=== PATIENT | male | born 1960 | race African-American/Black ===

== ENCOUNTER 2022-04-07 06:10 | Emergency (ER) | payer SELFPAY ==
[~2022-04-07] VITALS: Ht 175.3 cm; Wt 73.0 kg
[2022-04-07 08:19] LABS: BASOPHILS % 0.9 % (0.0-2.0); EOSINOPHILS % 5.6 % (0.0-5.0); HEMATOCRIT. 40.7 % (42.0-52.0); HEMOGLOBIN. 13.6 g/dL (14.0-18.0); LYMPHOCYTES % 25.5 % (20.0-50.0); MEAN CORPUSCULAR HEMOGLOBIN 31.3 pg (28.0-32.0); MEAN CORPUSCULAR VOLUME 93.9 fL (80.0-94.0); MEAN PLATELET VOLUME 8.7 fl (7.4-10.4); MONOCYTES % 12.1 % (2.0-8.0); NEUTROPHILS % 55.9 % (40.0-76.0); PLATELET 209 x1000/uL (130-400); RED BLOOD CELL COUNT 4.34 mill/uL (4.7-6.1); RED CELL DISTRIBUTION WIDTH 14.4 % (11.6-14.6)
[2022-04-07 08:24] LABS: CHLORIDE 108 mEq/L (98-107)
[2022-04-07 08:56] LABS: PROTHROMBIN TIME 10.8 sec (9.6-11.0)
[2022-04-07] MEDS ORDERED: TOPUD PO (09:07)
[2022-04-07 09:21] VITALS: BP 136/85
== END 2022-04-07 09:27 | disposition home or self-care (01) ==
LOC: ER 06:10
DX: K40.90 Unilateral inguinal hernia, without obstruction or gangrene, not specified as recurrent (principal); Z87.828 Personal history of other (healed) physical injury and trauma
CPT/HCPCS: 36415; 74176; 80053; 85025; 93005; 99285